=== PATIENT | male | born 1990 | race African-American/Black ===

== ENCOUNTER 2020-03-18 05:00 | Emergency (ER) | payer SELFPAY ==
[~2020-03-18] VITALS: Ht 180.3 cm; Wt 75.0 kg
[2020-03-18] MEDS ORDERED: CEFTRIAXONE SODIUM 250 MG/VIAL IM ONE (06:45)
[2020-03-18] MEDS ORDERED: AZITHROMYCIN 500 MG TABLET PO ONE (06:45)
[2020-03-18 07:32] LABS: CLARITY URINE TURBID (CLEAR); COLOR URINE YELLOW (YELLOW); KETONES URINE NEGATIVE (NEGATIVE); LEUKOCYTE ESTERASE URINE NEGATIVE (NEGATIVE); NITRITE URINE NEGATIVE (NEGATIVE); OCCULT BLOOD URINE NEGATIVE (NEGATIVE); PROTEIN URINE NEGATIVE (NEGATIVE); SPECIFIC GRAVITY URINE 1.024 (1.005-1.030); UROBILINOGEN URINE 0.2 E.U./dL (0.2-1.0)
[2020-03-18 08:35] VITALS: BP 102/71
== END 2020-03-18 09:19 | disposition home or self-care (01) ==
LOC: ER 05:00
DX: N34.2 Other urethritis (principal); F17.200 Nicotine dependence, unspecified, uncomplicated
CPT/HCPCS: 81003; 96372; 99283; J0696

== ENCOUNTER 2020-04-11 21:47 | Emergency (ER) | payer SELFPAY ==
[~2020-04-11] VITALS: Ht 172.7 cm; Wt 64.0 kg
[2020-04-11 21:51] VITALS: BP 133/77
== END 2020-04-12 00:28 | disposition left against medical advice (07) ==
LOC: ER 21:47
DX: Z53.21 Procedure and treatment not carried out due to patient leaving prior to being seen by health care provider (principal)